=== PATIENT | male | born 1980 | race Caucasian/White ===

== ENCOUNTER 2016-07-23 11:43 | Emergency (ER) | payer OTHER ==
[~2016-07-23] VITALS: Ht 190.5 cm; Wt 121.0 kg
[2016-07-23 11:55] VITALS: TEMP 36.7; Ht 190.5 cm; Wt 121.0 kg
--- NOTE | 2016-07-23 12:48 | EMERGENCY ROOM VISIT NOTE ---
History Report prepared by Abad: Perry Matias Under the Supervision of: Dr. Matthew Mendoza M.D. First contact with patient: 12:35 Chief Complaint: ILLNESS Stated Complaint: PEDAL SPASMS History of Present Illness The patient is a 36 year old male who presents to the Emergency Room via ambulance with complaints of an episode of hand and foot numbness that occurred prior to arrival today. He says his hands clamped up and he could not move them. He additionally had numbness in his chin and face. The patient was also hyperventilating, and he felt a tightness in his abdominal muscles. The patient was driving when the symptoms came on. He did smoke marijuana an hour and a half before the symptoms came on. He denies any pain, fevers, or chills. The patient notes that he had an episode similar to this a week ago, albeit not as severe. He smoked a cigarette before the episode last week. The patient does no other street drugs other than marijuana. He does drink occasional alcohol. Source of History: patient Onset: Prior to arrival today Position: hand, foot Quality: numbness Timing: other (episode) Associated Symptoms: No chills, No fevers Note: Associated symptoms: Tightness in abdominal muscles, numbness in chin and face, hyperventilated. Denies pain. Review of Systems All systems have been listed, reviewed, and are negative other than those previously mentioned. Please see Additional Medical History Sheet. Past Medical & Surgical Medical Problems: (1) Chronic back pain (2) Hypertension Surgical Problems: (1) No history of previous surgery Family History FH: cancer FH: diabetes mellitus FH: hypertension FH: lung disease Social History Smoking Status: Current Every Day Smoker Alcohol Use: occasionally Drug Use: marijuana Marital Status: single Housing Status: lives with friends Occupation Status: unemployed Current/Historical Medications Scheduled Diphenhydramine Hcl (Benadryl Allergy), 2 CAP PO HS Allergies Coded Allergies: No Known Allergies (Unverified , 07/23/16) Physical Exam Vital Signs Date Time Temp Pulse Resp B/P Pulse Ox O2 Delivery O2 Flow Rate FiO2 07/23/16 14:42 79 16 125/79 97 07/23/16 13:58 59 16 137/101 97 Room Air 07/23/16 13:07 98 Room Air 07/23/16 11:56 73 07/23/16 11:55 36.7 67 16 125/94 98 Room Air Physical Exam GENERAL: Patient awake, alert, oriented x 3. Patient follows commands. Patient does not appear toxic. Patient is adequately hydrated and well- nourished. SKIN: No erythema, pallor, cyanosis or rash HEENT: Normal head, pupils equal, reactive to light and accommodation. Increased cerumen bilaterally. Oral cavity and posterior pharynx appear normal. Neck: Without adenopathy, no neck vein distention. LUNGS: Clear to auscultation. No wheezes, no rales, no rhonchi. HEART: No murmurs. No gallops. No rubs ABDOMEN: No masses, no rebound, no hepatomegaly or splenomegaly. EXTREMITIES: No signs of trauma. No pedal or pretibial edema. No calf or thigh tenderness. NEUROLOGIC: Cranial nerves II-XII within normal limits. No gross motor sensory function deficits. Medical Decision & Procedures Laboratory Results 07/23/16 13:50 07/23/16 13:50 Test 07/23/16 13:50 Red Blood Count 5.21 M/uL (4.7-6.1) Mean Corpuscular Volume 86.0 fL (80-100) Mean Corpuscular Hemoglobin 31.7 pg (25-34) Mean Corpuscular Hemoglobin Concent 36.8 g/dl (32-36) RDW Standard Deviation 39.5 fL (36.4-46.3) RDW Coefficient of Variation 12.4 % (11.5-14.5) Mean Platelet Volume 11.4 fL (7.4-10.4) Anion Gap 9.0 mmol/L (3-11) Est Creatinine Clear Calc Drug Dose 151.0 ml/min Estimated GFR () 120.3 Estimated GFR (Non- 103.8 BUN/Creatinine Ratio 17.1 (10-20) Calcium Level 9.7 mg/dl (8.5-10.1) Troponin I < 0.015 ng/ml (0-0.045) Laboratory results as stated above per my review. ECG Indication: other (numbness) Rate (beats per minute): 52 Rhythm: sinus bradycardia Findings: no acute ischemic change, no ectopy ED Course 1239: Past medical records reviewed. The patient was evaluated in room A11A. A complete history and physical examination was performed. 1432: Upon reevaluation, the patient appeared to have improvement of his symptoms. I discussed today's findings with him. He verbalized agreement of the treatment plan. He was discharged home. Medical Decision Nurses notes reviewed. Medical history sheet reviewed. Differential diagnosis includes but is not limited to: hyperventilation, anxiety, carpopedal spasm. The patient's history and physical findings are most consistent with hyperventilation. The patient was counseled regarding hyperventilation. I do not believe he requires any medications. Labs were evaluated. Please see above. The patient has no significant abnormalities noted. Impression Primary Impression: Hyperventilation syndrome Scribe Attestation The scribe's documentation has been prepared under my direction and personally reviewed by me in its entirety. I confirm that the note above accurately reflects all work, treatment, procedures, and medical decision making performed by me. Departure Information Dispostion Home / Self-Care Referrals Dangelo Hernandez M.D. (PCP) Patient Instructions ED Hyperventilation Syndrome, My [facility] Additional Instructions Return here if symptoms recur and do not resolve with slow steady breathing.
[2016-07-23 13:07] VITALS: O2SAT 98
[2016-07-23] MEDS ORDERED: DIPH25CA65 PO (13:56)
[2016-07-23 13:59] LABS: HEMATOCRIT 44.8 % (42-52); MEAN CORPUSCULAR HEMOGLOBIN 31.7 pg (25-34); MEAN CORPUSCULAR HGB CONC 36.8 g/dl (32-36); MEAN PLATELET VOLUME 11.4 fL (7.4-10.4); PLATELET COUNT 175 K/uL (130-400); RED BLOOD COUNT 5.21 M/uL (4.7-6.1); WHITE BLOOD COUNT 8.72 K/uL (4.8-10.8)
[2016-07-23 14:23] LABS: BUN/CREATININE RATIO 17.1 (10-20); CALCIUM 9.7 mg/dl (8.5-10.1); CREATININE 0.93 mg/dl (0.60-1.40); POTASSIUM 3.8 mmol/L (3.5-5.1)
[2016-07-23 14:42] VITALS: BP 125/79; PULSE 79; O2SAT 97
[2016-07-23] MEDS ORDERED: DIPH1TAB PO (16:58)
== END 2016-07-23 14:43 | disposition home or self-care (01) ==
LOC: EDBD 11:43 → EDUNIT# 11:43 → C.EDA 11:44
DX: F45.8 Other somatoform disorders (principal); I10 Essential (primary) hypertension; Z83.3 Family history of diabetes mellitus; Z82.49 Family history of ischemic heart disease and other diseases of the circulatory system; F17.200 Nicotine dependence, unspecified, uncomplicated; F12.90 Cannabis use, unspecified, uncomplicated

== ENCOUNTER 2016-07-23 15:28 | Emergency (ER) | payer OTHER ==
[~2016-07-23 15:28] MED LIST: DIPH25CA65 PO
[2016-07-23 15:39] VITALS: TEMP 37; Ht 190.5 cm
[2016-07-23] MEDS ORDERED: DiphenhydrAMINE HCL 50 MG/ML VIAL IV STA (16:25)
[2016-07-23] MEDS ORDERED: LORAZEPAM 2 MG/ML 1 ML VIAL IV STA (16:25)
[2016-07-23] MEDS ORDERED: SODIUM CHLORIDE 0.9% 1000ML 1,000 ML IV STA ×2 (16:25→17:08)
[2016-07-23 16:52] LABS: URINE APPEARANCE CLEAR (CLEAR); URINE BILIRUBIN NEG (NEG); URINE COLOR YELLOW; URINE EPITHELIAL CELL AUTO 0-5 /lpf (0-5); URINE NITRITE NEG (NEG); URINE SPECIFIC GRAVITY 1.003 (1.000-1.030); UROBILINOGEN NEG (NEG); ZZUR CULT IF INDIC CLEAN CATCH NO
[2016-07-23 16:53] LABS: MANUAL MICROSCOPIC REQUIRED? NO; REVIEW REQ? NO
--- NOTE | 2016-07-23 16:54 | EMERGENCY ROOM VISIT NOTE ---
History Report prepared by Abad: Priscilla Henderson Under the Supervision of: Dr. Dangelo Garcia M.D. First contact with patient: 16:22 Chief Complaint: ILLNESS Stated Complaint: CLINCHING UP HANDS NUMB History of Present Illness The patient is a 36 year old male who presents to the Emergency Room with complaints of worsening anxiety beginning STATISTICAL CLERK. The patient was evaluated in the ED earlier today and he was discharged one hour ago. His symptoms were beginning to return on the drive home so he decided to come back for reevaluation. The patient was smoking marijuana 2 hours prior to his symptoms beginning today. He started feeling severely anxious and was hyperventilating. He had cramping of his hands and abdomen. He states that his hands feel numb. He was drinking alcohol last night. Source of History: patient Onset: STATISTICAL CLERK Position: other (global) Symptom Intensity: 06/12 Quality: other (anxiety) Timing: worsening Associated Symptoms: + abdominal pain, + numbness Review of Systems See HPI for pertinent positives & negatives. A total of 10 systems reviewed and were otherwise negative. Past Medical & Surgical Medical Problems: (1) Chronic back pain (2) Hypertension Surgical Problems: (1) No history of previous surgery Family History FH: cancer FH: diabetes mellitus FH: hypertension FH: lung disease Social History Smoking Status: Current Every Day Smoker Alcohol Use: occasionally Drug Use: marijuana Marital Status: single Housing Status: lives with friends Occupation Status: unemployed Current/Historical Medications Scheduled PRN Diphenhydramine Hcl (Benadryl Allergy), 50 MG PO HS PRN for Sleep Allergies Coded Allergies: No Known Allergies (Unverified , 07/23/16) Physical Exam Vital Signs Date Time Temp Pulse Resp B/P Pulse Ox O2 Delivery O2 Flow Rate FiO2 07/23/16 18:46 83 20 129/83 100 07/23/16 17:46 69 19 135/86 100 Room Air 07/23/16 15:39 37.0 60 18 141/94 100 Room Air Physical Exam GENERAL: Patient is severely anxious appearing, hyperventilating, clawing of bilateral hands. HEENT: No acute trauma, normocephalic atraumatic, mucous membranes moist, no nasal congestion, no scleral icterus. NECK: No stridor, no adenopathy, no meningismus, trachea is midline. LUNGS: No dyspnea. Clear to auscultation and equal bilaterally. No wheeze, no rhonchi. HEART: Regular rate and rhythm. No murmurs, rubs, gallops appreciated. ABDOMEN: Soft, nontender, bowel sounds positive, no masses appreciated, no peritonitis. BACK: No midline tenderness, no CVA tenderness EXTREMITIES: Normal motion all extremities, no cyanosis, no edema. NEUROLOGIC: Alert and oriented, no acute motor or sensory deficits, no focal weakness, cranial nerves grossly intact. SKIN: No rash, no jaundice, no diaphoresis. Medical Decision & Procedures Laboratory Results 07/23/16 16:49 Red Blood Count 5.06, Mean Corpuscular Volume 85.6, Mean Corpuscular Hemoglobin 31.6, Mean Corpuscular Hemoglobin Concent 37.0, Mean Platelet Volume 11.5, Neutrophils (%) (Auto) 81.5, Lymphocytes (%) (Auto) 13.2, Monocytes (%) (Auto) 4.6, Eosinophils (%) (Auto) 0.1, Basophils (%) (Auto) 0.2, Neutrophils # (Auto) 6.78, Lymphocytes # (Auto) 1.10, Monocytes # (Auto) 0.38, Eosinophils # (Auto) 0.01, Basophils # (Auto) 0.02 07/23/16 16:49 Test 07/23/16 16:40 07/23/16 16:49 Urine Color YELLOW Urine Appearance CLEAR (CLEAR) Urine pH 6.0 (4.5-7.5) Urine Specific [place] 1.003 (1.000-1.030) Urine Protein NEG (NEG) Urine Glucose (UA) NEG (NEG) Urine Ketones 3+ (NEG) Urine Occult Blood NEG (NEG) Urine Nitrite NEG (NEG) Urine Bilirubin NEG (NEG) Urine Urobilinogen NEG (NEG) Urine Leukocyte Esterase NEG (NEG) Urine WBC (Auto) 0 /hpf (0-5) Urine RBC (Auto) 0-4 /hpf (0-4) Urine Hyaline Casts (Auto) 0 /lpf (0-5) Urine Epithelial Cells (Auto) 0-5 /lpf (0-5) Urine Bacteria (Auto) NEG (NEG) Urine Opiates Screen NEG (NEG) Urine Methadone, Qualitative NEG (NEG) Urine Barbiturates NEG (NEG) Urine Phencyclidine (PCP) Level NEG (NEG) Ur Amphetamine/Methamphetamine NEG (NEG) MDMA (Ecstasy) Screen NEG (NEG) Urine Benzodiazepines Screen NEG (NEG) Urine Cocaine Metabolite NEG (NEG) Urine Marijuana (THC) POS (NEG) White Blood Count 8.32 K/uL (4.8-10.8) Red Blood Count 5.06 M/uL (4.7-6.1) Hemoglobin 16.0 g/dL (14.0-18.0) Hematocrit 43.3 % (42-52) Mean Corpuscular Volume 85.6 fL (80-100) Mean Corpuscular Hemoglobin 31.6 pg (25-34) Mean Corpuscular Hemoglobin Concent 37.0 g/dl (32-36) Platelet Count 187 K/uL (130-400) Mean Platelet Volume 11.5 fL (7.4-10.4) Neutrophils (%) (Auto) 81.5 % Lymphocytes (%) (Auto) 13.2 % Monocytes (%) (Auto) 4.6 % Eosinophils (%) (Auto) 0.1 % Basophils (%) (Auto) 0.2 % Neutrophils # (Auto) 6.78 K/uL (1.4-6.5) Lymphocytes # (Auto) 1.10 K/uL (1.2-3.4) Monocytes # (Auto) 0.38 K/uL (0.11-0.59) Eosinophils # (Auto) 0.01 K/uL (0-0.5) Basophils # (Auto) 0.02 K/uL (0-0.2) RDW Standard Deviation 39.0 fL (36.4-46.3) RDW Coefficient of Variation 12.4 % (11.5-14.5) Immature Granulocyte % (Auto) 0.4 % Immature Granulocyte # (Auto) 0.03 K/uL (0.00-0.02) Anion Gap 16.0 mmol/L (3-11) Estimated GFR () 98.2 Estimated GFR (Non- 84.7 BUN/Creatinine Ratio 14.1 (10-20) Calcium Level 9.4 mg/dl (8.5-10.1) Total Bilirubin 1.4 mg/dl (0.2-1) Aspartate Amino Transf (AST/SGOT) 15 U/L (15-37) Alanine Aminotransferase (ALT/SGPT) 38 U/L (12-78) Alkaline Phosphatase 88 U/L (45-117) Total Creatine Kinase 141 U/L (39-308) Troponin I < 0.015 ng/ml (0-0.045) Total Protein 7.5 gm/dl (6.4-8.2) Albumin 5.1 gm/dl (3.4-5.0) Globulin 2.4 gm/dl (2.5-4.0) Albumin/Globulin Ratio 2.1 (0.9-2) Ethyl Alcohol mg/dL < 3.0 mg/dl (0-3) Medications Administered Medications (Trade) Dose Ordered Sig/Perri Route Start Time Stop Time Status Last Admin Dose Admin Sodium Chloride (Nss 1000ml) 1,000 ml @ 999 mls/hr Q1H1M STAT IV 07/23/16 16:25 07/23/16 17:25 DC 07/23/16 16:54 999 MLS/HR Lorazepam (Ativan Inj) 1 mg NOW STAT IV 07/23/16 16:25 07/23/16 16:26 DC 07/23/16 16:54 1 MG Diphenhydramine HCl 50 mg 50 mg NOW STAT IV 07/23/16 16:25 07/23/16 16:26 DC 07/23/16 16:54 50 MG Sodium Chloride (Nss 1000ml) 1,000 ml @ 999 mls/hr Q1H1M STAT IV 07/23/16 17:08 07/23/16 18:08 DC 07/23/16 17:44 999 MLS/HR ECG Indication: abdominal pain Rate (beats per minute): 74 Rhythm: normal sinus Findings: no acute ischemic change, no ectopy ED Course 162: The patient was evaluated in room C3. A complete history and physical exam was performed. 1625: Benadryl 50 mg IV, Ativan 1 mg IV, NSS 1000 ml @ 999 mls/hr IV 1649: I reassessed the patient. He had urinated on the floor. 1708: NSS 1000 ml @ 999 mls/hr IV 1724: The patient is feeling better and is in no distress. 1759: I reassessed the patient at this time. He is feeling better and resting comfortably. I discussed the results and treatment plan with the patient. I answered all pertaining questions that he had. He expressed understanding and verbalized agreement. The patient will be discharged home after he is finished receiving fluids. Medical Decision Differential: Mood Disorder, Overdose, Infectious, Electrolyte Abnormality, Cardiac, Hepatic, Endocrine, Toxicologic, Neurologic, amongst other pathologies entertained. Very anxious 36 yr old male arrives with carpal spasm and hyperventilating. He admits smoking marijuana daily though these symptoms started shortly after smoking this afternoon. Evaluated earlier in ED and discharged though notes symptoms have continued thus he returned. He was given ativan/benadryl with resolution of symptoms. Given NSS boluses as he had some Ketones in urine. Mild Bili elevation though no TTP epigastrium nor RUQ, no fevers, and no further symptoms after fluids/above. Stable and in no distress wishing to go home. Counselled against illicit drug use. Advised follow up with PCP. RTED if worsening symptoms or other concerns. He denies any suicidal/homicidal thoughts nor does he feel he needs psych evaluation. Impression Primary Impression: Acute hyperventilation syndrome Additional Impressions: Spasms of the hands or feet Marijuana use Scribe Attestation The scribe's documentation has been prepared under my direction and personally reviewed by me in its entirety. I confirm that the note above accurately reflects all work, treatment, procedures, and medical decision making performed by me. Departure Information Dispostion Home / Self-Care Referrals No Doctor, Assigned (PCP) Patient Instructions ED Hyperventilation Syndrome, My [facility] Problem Qualifiers
[2016-07-23] MEDS ORDERED: DIPH1TAB PO (16:58)
[2016-07-23 17:02] LABS: BASO % 0.2 %; BASO ABS # 0.02 K/uL (0-0.2); COMPLETE YES; EOS % 0.1 %; HEMATOCRIT 43.3 % (42-52); IG% 0.4 %; LYMPH % 13.2 %; MEAN CELL VOLUME 85.6 fL (80-100); MEAN CORPUSCULAR HEMOGLOBIN 31.6 pg (25-34); MEAN PLATELET VOLUME 11.5 fL (7.4-10.4); MONO % 4.6 %; NEUT % 81.5 %; PLATELET COUNT 187 K/uL (130-400); RED BLOOD COUNT 5.06 M/uL (4.7-6.1); WHITE BLOOD COUNT 8.32 K/uL (4.8-10.8)
[2016-07-23 17:12] LABS: BENZODIAZEPINE, URINE NEG (NEG); COCAINE,URINE NEG (NEG); PHENCYCLIDINE, URINE NEG (NEG)
[2016-07-23 17:23] LABS: ALT/SGPT 38 U/L (12-78); BLOOD UREA NITROGEN 15 mg/dl (7-18); BUN/CREATININE RATIO 14.1 (10-20); CALCIUM 9.4 mg/dl (8.5-10.1); CARBON DIOXIDE 21 mmol/L (21-32); CHLORIDE 107 mmol/L (98-107); GLUCOSE 83 mg/dl (70-99); POTASSIUM 3.5 mmol/L (3.5-5.1); SODIUM 144 mmol/L (136-145)
[2016-07-23 17:30] LABS: ALB/GLOB RATIO 2.1 (0.9-2); ALKALINE PHOSPHATASE 88 U/L (45-117); AST/SGOT 15 U/L (15-37)
[2016-07-23 18:46] VITALS: BP 129/83; PULSE 83; O2SAT 100
== END 2016-07-23 18:48 | disposition home or self-care (01) ==
LOC: C.EDB 15:29 → C.EDC 18:48
DX: F45.8 Other somatoform disorders (principal); R25.2 Cramp and spasm; F12.90 Cannabis use, unspecified, uncomplicated; I10 Essential (primary) hypertension; Z83.3 Family history of diabetes mellitus; Z82.49 Family history of ischemic heart disease and other diseases of the circulatory system; F17.200 Nicotine dependence, unspecified, uncomplicated

== ENCOUNTER 2016-07-29 21:00 | Emergency (ER) | payer OTHER ==
[~2016-07-29] VITALS: Ht 190.5 cm; Wt 127.3 kg
[~2016-07-29 21:00] MED LIST changes: +DIPH1TAB PO; -DIPH25CA65 PO
[2016-07-29 21:08] VITALS: TEMP 37.3; Ht 190.5 cm; Wt 127.3 kg
[2016-07-29 22:41] VITALS: BP 115/83; PULSE 51; O2SAT 98
--- NOTE | 2016-07-29 23:14 | EMERGENCY ROOM VISIT NOTE ---
History Report prepared by Abad: Kamaljit Penn Under the Supervision of: Dr. Fely Villa D.O. First contact with patient: 22:57 Chief Complaint: WEAKNESS Stated Complaint: SEPSIS SYMPTOMS Nursing Triage Summary: pt reports seen here on 07/23 for hyperventalation,/ panic attack , pt states " I feel like I may have caught something while I was here" "I feel weak I have NVD for 2 days after DC and this has gone away" now I feel week and feverish with chills did not take tylenol or motrin , denies NV or abdominal pain at this time History of Present Illness The patient is a 36 year old male who presents to the Emergency Room with complaints of waxing & waning generalized weakness for the past five days. The patient was in the ED twice 6 days ago for hyperventilation / panic attacks. The patient started to feel ill after leaving the ED. He was laying on his mattress on the floor and was barely able to move secondary to feeling weak. He had diarrhea after leaving the ED, which is currently resolved. He denies any fevers, nausea, or vomiting. The patient also expresses concern over redness surrounding his IV sites from his last ED visits. He also complains of feeling clammy, lightheaded, and more hyperventilation. The patient denies any history of anxiety. He does occasionally smoke marijuana. He lives with his roommate. 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 Source of History: patient Onset: five days ago Position: other (generalized) Quality: other (weakness) Timing: waxes/wanes Associated Symptoms: + diarrhea, No fevers, No nausea, No vomiting Review of Systems See HPI for pertinent positives & negatives. A total of 10 systems reviewed and were otherwise negative. Past Medical & Surgical Medical Problems: (1) Chronic back pain (2) Hypertension Surgical Problems: (1) No history of previous surgery Family History FH: cancer FH: diabetes mellitus FH: hypertension FH: lung disease Social History Smoking Status: Current Every Day Smoker Alcohol Use: occasionally Drug Use: marijuana Marital Status: single Housing Status: lives with friends Occupation Status: unemployed Current/Historical Medications Scheduled PRN Diphenhydramine Hcl (Benadryl Allergy), 50 MG PO HS PRN for Sleep Allergies Coded Allergies: No Known Allergies (Unverified , 07/29/16) Physical Exam Vital Signs Date Time Temp Pulse Resp B/P Pulse Ox O2 Delivery O2 Flow Rate FiO2 07/29/16 22:41 51 18 115/83 98 Room Air 07/29/16 21:08 37.3 77 18 139/91 98 Room Air Physical Exam General: Patient appears extremely anxious and is slightly hyperverbal. HEENT: Head - normocephalic and atraumatic Pupils are equal, round, and reactive to light. Extraocular eye muscles are intact, and sclera are anicteric. Nose - moist nasal mucosa without discharge. Mouth - moist buccal mucosa. Oropharynx is nonerythematous and there is no tonsillar exudate or edema noted. Neck: Supple; no JVD, nuchal rigidity or cervical lymphadenopathy. Heart: Regular rate and rhythm. There is a normal S1 and S2 with no murmurs, clicks, or gallops appreciated. Lungs: Clear to auscultation bilaterally with no wheezes, rales, or rhonchi. Abdomen: Soft, completely nontender, nondistended, with good bowel sounds. There are no palpable pulsatile masses or hepatosplenomegaly. There is no guarding, rigidity, or rebound noted. Extremities: No evidence of cyanosis, clubbing, or edema. There are easily palpable peripheral pulses. Ventral aspect of the left hand has a hematoma from IV start. There are no signs of cellulitis. Skin: warm and dry with good turgor and no rashes. Medical Decision & Procedures ED Course 2305: Past medical records reviewed. The patient was evaluated in room C10. A complete history and physical exam was performed. 2335: Verbal discharge instructions were given to the patient. He left the ED before written instructions were given. Medical Decision The patient is a 36 year old male who presents to the ED with generalized weakness. Differential diagnosis includes sepsis, panic attack, hyperventilation , anxiety. The patient presents to the emergency department stating that he believes he may have overreacted to his symptoms. He describes generalized weakness and had some concern for area of hematoma surrounding an IV started site. The patient states that he was looking at YouTube with regards to a blood infection and thought maybe he had this. Once he arrived to the emergency department was feeling better, he realized that he may have overreacted to his symptoms. The patient has had 3 visits to the emergency department the past week. The patient admits to some episodes of hyperventilation and panic attacks. He denies having history of this in the past. He denies being depressed. He has made attempts to get a primary care physician through Medicaid. I've encouraged him to follow up with them to establish as new patient. He was told to return to the emergency department if he developed any worsening symptoms such as chest pain, high fevers or shortness of breath. Impression Primary Impression: Anxiety Scribe Attestation The scribe's documentation has been prepared under my direction and personally reviewed by me in its entirety. I confirm that the note above accurately reflects all work, treatment, procedures, and medical decision making performed by me. Departure Information Dispostion Home / Self-Care Referrals No Doctor, Assigned (PCP) Forms HOME CARE DOCUMENTATION FORM, IMPORTANT VISIT INFORMATION Patient Instructions My [facility]
== END 2016-07-29 23:42 | disposition home or self-care (01) ==
LOC: C.EDB 21:02 → C.EDC 23:42
DX: F41.9 Anxiety disorder, unspecified (principal); R53.1 Weakness; I10 Essential (primary) hypertension; G89.29 Other chronic pain; F17.200 Nicotine dependence, unspecified, uncomplicated; Z80.9 Family history of malignant neoplasm, unspecified; Z83.3 Family history of diabetes mellitus; Z82.49 Family history of ischemic heart disease and other diseases of the circulatory system